=== PATIENT | female | born 2000 | race Caucasian/White ===

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

== ENCOUNTER 2019-12-13 17:49 | Emergency (ER) | payer OTHER ==
[~2019-12-13] VITALS: Ht 162.6 cm; Wt 61.2 kg
[2019-12-13 18:14] VITALS: Ht 162.6 cm; Wt 61.2 kg
[2019-12-13 20:03] VITALS: BP 104/58
== END 2019-12-13 20:04 | disposition home or self-care (01) ==
LOC: ED 17:49
DX: S39.012A Strain of muscle, fascia and tendon of lower back, initial encounter (principal); Z90.721 Acquired absence of ovaries, unilateral; X50.0XXA Overexertion from strenuous movement or load, initial encounter; Y93.89 Activity, other specified; Y92.89 Other specified places as the place of occurrence of the external cause; Y99.8 Other external cause status
CPT/HCPCS: J1885